=== PATIENT | female | born 1940 | race Caucasian/White ===

== ENCOUNTER 2021-12-30 19:35 | Inpatient (IN) | payer OTHER, MEDICARE ==
[~2021-12-30] VITALS: Ht 165.1 cm; Wt 80.0 kg
[2021-12-30 23:50] LABS: CLARITY URINE CLEAR (CLEAR); COLOR URINE YELLOW (YELLOW); KETONES URINE NEGATIVE (NEGATIVE); LEUKOCYTE ESTERASE URINE NEGATIVE (NEGATIVE); NITRITE URINE NEGATIVE (NEGATIVE); OCCULT BLOOD URINE NEGATIVE (NEGATIVE); PROTEIN URINE NEGATIVE (NEGATIVE); SPECIFIC GRAVITY URINE 1.013 (1.005-1.030); UROBILINOGEN URINE 0.2 E.U./dL (0.2-1.0)
[2021-12-30] MEDS ORDERED: QUETIAPINE FUMARATE 25MG TABLET PO SCH (23:56)
[2021-12-31] MEDS ORDERED: TRAZODONE HCL 50MG TABLET PO NR (01:00)
[2021-12-31] MEDS ORDERED: CLONIDINE 0.1MG TABLET PO PRN (05:45)
[2021-12-31] MEDS ORDERED: GUAIFENESIN 200MG/10ML SUGAR FREE UDC PO PRN (05:45)
[2021-12-31] MEDS ORDERED: DOCUSATE SODIUM 100MG CAPSULE PO PRN (05:45)
[2021-12-31] MEDS ORDERED: ONDANSETRON HCL 4MG/2ML INJ IV PRN (05:45)
[2021-12-31] MEDS ORDERED: ACETAMINOPHEN 325MG TABLET PO PRN (05:45)
[2021-12-31] MEDS: AMLODIPINE 10MG TABLET PO SCH ×2 (05:56→09:00)
[2021-12-31 09:47] VITALS: BP 158/75
[2021-12-31 10:49] LABS: CHLORIDE 108 mEq/L (98-107)
[2021-12-31 10:51] LABS: BASOPHILS % 1.1 % (0.0-2.0); HEMATOCRIT. 38.3 % (36.0-48.0); HEMOGLOBIN. 12.7 g/dL (12.0-16.0); LYMPHOCYTES % 18.4 % (20.0-50.0); MEAN CORPUSCULAR HEMOGLOBIN 30.1 pg (28.0-32.0); MEAN CORPUSCULAR VOLUME 90.7 fL (81.0-99.0); MEAN PLATELET VOLUME 8.7 fl (7.4-10.4); MONOCYTES % 8.1 % (2.0-8.0); NEUTROPHILS % 71.4 % (40.0-76.0); PLATELET 292 x1000/uL (130-400); RED BLOOD CELL COUNT 4.22 mill/uL (4.2-5.4); RED CELL DISTRIBUTION WIDTH 14.3 % (11.6-14.6)
[2021-12-31] MEDS ORDERED: ENOXAPARIN 40MG/0.4ML SYR SUBCUT SCH (12:00)
== END 2021-12-31 14:08 | disposition left against medical advice (07) | DRG 71 ==
LOC: ER 19:35 → MICUSO 12-31 00:13 → 8WST 12-31 07:23 → UNDODISIN 12-31 14:08
PROVIDERS: ADMIT Hospitalist; ATTEND Hospitalist
DX: G93.49 Other encephalopathy (principal); N39.0 Urinary tract infection, site not specified; F03.90 Unspecified dementia, unspecified severity, without behavioral disturbance, psychotic disturbance, mood disturbance, and anxiety; Z53.29 Procedure and treatment not carried out because of patient's decision for other reasons; I10 Essential (primary) hypertension; Z87.440 Personal history of urinary (tract) infections; Z87.891 Personal history of nicotine dependence
CPT/HCPCS: 36415; 80048; 81003; 85025; 93970; 99285